=== PATIENT | male | born 1965 | race Caucasian/White ===

== ENCOUNTER 2017-01-12 20:06 | Emergency (ER) | payer OTHER ==
[~2017-01-12] VITALS: Ht 185.4 cm; Wt 99.8 kg
[2017-01-12] MEDS ORDERED: ZOLPIDEM TARTRA10 MG PO (20:17)
[2017-01-12] MEDS ORDERED: OMEPRAZOLE20 MG PO (20:17)
[2017-01-12] MEDS ORDERED: ATORVASTATIN CA20 MG PO (20:18)
[2017-01-12] MEDS ORDERED: SERTRALINE HCL25 MG PO (20:18)
[2017-01-12] MEDS ORDERED: IBUPROFEN600 MG PO (21:35)
[2017-01-12] MEDS ORDERED: PERCOCET 5-3251 EACH PO (21:35)
== END 2017-01-12 21:51 | disposition home or self-care (01) ==
LOC: ED 20:06
DX: S40.022A Contusion of left upper arm, initial encounter (principal); S20.212A Contusion of left front wall of thorax, initial encounter; E78.5 Hyperlipidemia, unspecified; V80.010A Animal-rider injured by fall from or being thrown from horse in noncollision accident, initial encounter; Z79.899 Other long term (current) drug therapy
CPT/HCPCS: 71101; 96372; 99283; J2550; J3010